=== PATIENT | male | born 1980 | race Asian ===

== ENCOUNTER 2018-12-28 04:42 | Emergency (ER) | payer SELFPAY ==
[~2018-12-28] VITALS: Ht 157.5 cm; Wt 68.2 kg
[2018-12-28 07:50] VITALS: BP 147/110
== END 2018-12-28 08:08 | disposition home or self-care (01) ==
LOC: EMS 04:44
DX: H20.9 Unspecified iridocyclitis (principal); H10.89 Other conjunctivitis; F17.210 Nicotine dependence, cigarettes, uncomplicated